=== PATIENT | female | born 1970 | race Native Hawaiian/Other Pacific Islander ===

== ENCOUNTER 2017-07-11 06:20 | Inpatient (IN) | payer BC ==
[2017-07-04 09:03] VITALS: BMI 26.5
[2017-07-11] MEDS ORDERED: Bacitracin Ointment 30 GM TUBE ONE (07:36)
[2017-07-11] MEDS ORDERED: cefOXitin IV 2 gm in Dextrose 2 GM/50 ML BAG IVPB ONE (07:36)
[2017-07-11] MEDS ORDERED: Midazolam 2 MG/2 ML VIAL ONE (08:02)
[2017-07-11] MEDS ORDERED: Propofol 10 mg/ml Inj (20 ML) ONE (08:02)
[2017-07-11] MEDS ORDERED: Lactated Ringer's 1,000 ML IV ONE ×3 (08:23→12:35)
[2017-07-11] MEDS ORDERED: ePHEDrine 50 mg/ml Inj ONE (08:43)
[2017-07-11] MEDS ORDERED: Neostigmine Methylsulfate 3mg/3ml Syringe IV ONE (10:39)
[2017-07-11] MEDS: HYDROmorphone 0.5 mg/0.5 ml ISec IVP PRN ×5 (11:45→20:59)
[2017-07-11] MEDS ORDERED: HYDROmorphone 0.5 mg/0.5 ml ISec ONE (11:47)
[2017-07-11] MEDS ORDERED: HYDROmorphone 1 mg/ml ISec IVP PRN (11:56)
--- NOTE | 2017-07-11 15:29 | OP ---
PROCEDURE DATE: 07/11/2017 PREOPERATIVE DIAGNOSES: Serous cystadenoma of the right ovary and menometrorrhagia, endometriosis, and pelvic pains. POSTOPERATIVE DIAGNOSES: Serous cystadenoma of the right ovary and menometrorrhagia, and pelvic pains. OPERATIVE PROCEDURE: Total abdominal hysterectomy and bilateral salpingo-oophorectomy. SURGEON: Ankita Hernandez MD ENGINEERING EQUIPMENT OPERATOR: Jeromy Fernandez MD TYPE OF ANESTHESIA: General. ANESTHESIA ADMINISTERED BY: Dr. Mart. OPERATIVE FINDINGS: As follows, the uterus was slightly large and anterior located. Cervix is firm and closed. Both ovaries are showing signs of adhesion over the right ovary with adhesion to the posterior wall of the abdomen and measured slightly large and left ovary appeared grossly normal. Normal in size. Both fallopian tube appeared grossly normal. There was noted adhesion of the right ovary over the posterior pelvic wall. OPERATIVE TECHNIQUE: The patient was prepped and draped in the usual sterile manner under general anesthesia. The patient in supine position and was aseptically prepped and draped under general anesthesia. A Pfannenstiel skin incision was made. Incision was carried down to the subcutaneous layer. Fascia was cut in the usual manner and was performed and the peritoneum was picked up and opened, thereby exposing the abdominal contents. Pelvic organs were explored and the uterus was pulled up with the forceps for traction purposes. The right round ligament was identified and a Kendal clamp was clamped, cut and sutured over the right side and the same was performed over the left side. The right infundibulopelvic ligament was identified and was clamped, cut and suture ligated with 0 Vicryl sutures and was doubly cut, clamped on the same side and the same was performed over the left side, thereby removing both fallopian tubes and ovaries. The right ovarian artery was identified and was clamped, cut and suture ligated with 0 Vicryl sutures and was doubly cut and sutured with 0 Vicryl sutures. The same was performed over the left side. The right paracervical ligament was clamped, cut with a Jeff clamp and was sutured with 0 Vicryl sutures, the same was performed over the left side and the bladder was pushed down from the lower uterine segment of the uterus, thereby localizing the cervical portion of the uterus. The anterior vaginal wall was picked up and clamped with a Jeff forceps, thereby opening the anterior vaginal wall and thereby removing the cervix and the uterus together in one piece together with both fallopian tube and ovaries. The vaginal cuff was sutured with 0 Vicryl suture using Parks technique of suturing putting one on each angle of the vaginal wall and an interrupted [id number] was applied over the vaginal cuff thereby closing the vagina. A one open sponge soaked with Betadine was put inside the vagina to be removed after the surgery. After establishing hemostasis over the vaginal cuff was closed, the bladder flap was re-sutured by using a 2-0 chromic catgut sutures, thereby closing the pelvic wall. Abdominal cavity was irrigated with Ringer's lactate solution and after establishing hemostasis and after complete lap and sponge counts were announced to be correct, the abdominal cavity was closed in the following manner. Peritoneum was closed by using 0 chromic catgut continuous sutures. Muscles were reapproximated with the use of 0 chromic catgut interrupted sutures and the fascial layer was closed by using an 0 Vicryl using continuous sutures and interrupted sutures applied in different stitches. The subcutaneous layer was closed by using a 2-0 plain catgut suture using continuous sutures and the skin was reapproximated by the use of a 4-0 Monocryl sutures using subcuticular stitches. The patient was transferred to recovery room in stable condition. Estimated blood loss around 600 mL. Specimens consisted of the cervix, uterus, both fallopian tubes and ovaries were sent to the laboratory for histopathological examination and the Ospina catheter was applied, continuously draining clear urine of approximately 230 mL of urine and the thromboelastic compression stockings were in place in the operating room as well as in the recovery room. The patient was in stable condition, transferred to recovery room. Ankita Hernandez MD
[2017-07-11] MEDS ORDERED: cefOXitin IV 2 gm in Dextrose 2 GM/50 ML BAG IVPB SCH (16:00)
[2017-07-11] MEDS: cefOXitin 2 GM in Sodium Chloride 0.9% 100 ML IVPB SCH (16:00)
[2017-07-11] MEDS: Lactated Ringer's 1,000 ML IV SCH ×2 (21:05→21:06)
[2017-07-12] MEDS: cefOXitin 2 GM in Sodium Chloride 0.9% 100 ML IVPB SCH ×2 (00:06→09:42)
[2017-07-12 00:53] VITALS: RESP 20
[2017-07-12] MEDS: HYDROmorphone 0.5 mg/0.5 ml ISec IVP PRN ×5 (01:53→21:15)
[2017-07-12] MEDS: Lactated Ringer's 1,000 ML IV SCH ×2 (03:45→05:41)
[2017-07-12 06:29] LABS: HEMATOCRIT 34.8 % (34.0-47.0); MEAN CELL VOLUME 90.4 fL (81.0-99.0); MEAN CORPUSCULAR HEMOGLOBIN 30.3 pg (27.0-31.0); MEAN CORPUSCULAR HGB CONC 33.6 g/dL (33.0-37.0); MEAN PLATELET VOLUME 7.2 fL (7.2-11.7); RED CELL DISTRIBUTION WIDTH 13.1 % (11.5-14.5); WHITE BLOOD COUNT 12.1 K/uL (4.8-10.8)
[2017-07-12] MEDS: Simethicone 80 mg Chewtab PO PRN ×4 (09:42→21:18)
[2017-07-12] MEDS ORDERED: Pneumococcal 23-Valent Vaccine IM ONE (10:00)
[2017-07-12] MEDS: Oxycodone/Acetaminophen 5/325 mg Tab PO PRN (12:32)
--- NOTE | 2017-07-12 16:35 | CP.PCM.PN ---
Subjective - Date & Time of Evaluation Date of Evaluation: 07/12/17 Time of Evaluation: 16:47 - Subjective Subjective: p0st 0p day #1 AMBULATORY, COMPLAINING OF GAS PAINS, NOT PASSING GAS PER RECTUM, BUT SHE IS BELCHING.. MYLICON 80 MG QID WAS ORDERED AND DULCOLAX SUPPOSITORY PER RECTUM TONIGHT.BOWEL SOUNDS PRESENT BUT SLUGGISH. BP 90/60 MA 80 BEATS /MIN. ABDOMEN IS SOFT DRESSINGS REMOVED AND OPEN TO ROOM AIR. STERILE STRIPS IN PLACE, WOUND WELL COAPTATED. ADVISED TO AMBULATE.. ON PERCOCET FOR PAINSPRN Q4 HRS AND KEFLEX 5 OOMG Q 6 HRS PO. ON REGULAR DIET. VOIDED FREELY. All medical record entries made by the Scribe were at my direction and personally dictated by me. I have reviewed the chart and agree that the record accurately reflects my personal performance of the history, physical exam, medical decision making, and the department course for this patient. I have also personally directed, reviewed, and agree with the discharge instructions and disposition. Objective - Vital Signs/Intake and Output Vital Signs (last 24 hours): Temp Pulse Resp BP Pulse Ox 98.2 F 84 20 115/75 100 07/12/17 16:21 07/12/17 16:21 07/12/17 16:21 07/12/17 16:21 07/12/17 16:21 Intake and Output: 07/12/17 07/12/17 06:59 18:59 Intake Total 1200 Output Total 700 400 Balance -700 800 - Medications Medications: Current Medications Bisacodyl (Dulcolax) 10 mg MA ONCE ONE Stop: 07/12/17 22:01 Cephalexin Monohydrate (Keflex) 500 mg PO Q6 [facility] Last Admin: 07/12/17 12:26 Dose: 500 mg Hydromorphone HCl (Dilaudid) 1 mg IVP Q4H PRN PRN Reason: Pain, severe (8-10) Last Admin: 07/12/17 16:24 Dose: 1 mg Cefoxitin Sodium 2 gm/ (Dextrose) 100 mls @ 50 mls/hr IVPB Q8H [facility] Oxycodone/Acetaminophen (Percocet 5/325 Mg Tab) 1 tab PO Q4 PRN PRN Reason: Pain, moderate (4-7) Stop: 07/15/17 08:01 Last Admin: 07/12/17 12:32 Dose: 1 tab Simethicone (Mylicon Chew Tab) 80 mg PO QID PRN PRN Reason: GI distress Last Admin: 07/12/17 16:15 Dose: 80 mg - Labs Labs: 07/12/17 06:21
[2017-07-13] MEDS: cefOXitin 2 GM in Dextrose 5% In Water 100 ML IVPB SCH ×2 (00:07→09:08)
[2017-07-13] MEDS: HYDROmorphone 0.5 mg/0.5 ml ISec IVP PRN ×3 (01:24→10:14)
[2017-07-13] MEDS: Simethicone 80 mg Chewtab PO PRN (09:14)
--- NOTE | 2017-07-13 15:00 | CP.PCM.PN ---
Subjective - Date & Time of Evaluation Date of Evaluation: 07/13/17 Time of Evaluation: 14:00 - Subjective Subjective: POST OP DAY #2 PASSED GAS PER RECTUM AFTER DULCOLAX SUPPOSITORY WAS GIVEN. PATIENT IS DISCHARGED HOME TODAY. TO THE OFFICE IN 2 WEEKS FOR CHECKUP. PRESCRIPTIONS GIVEN FOR PAINS , TYLENOL #3 I TAB Q4 HRS PRN FOR PAINS, KEFLEX 500 MG 1 CAPSSULE QID FOR 7 DAYS, MYLICON 80 MG 1 TAB QID CHEWABLE TABLETS FOR GAS. DULCOLAX 2TABS DAILY FOR STOOL SOFTENER . N Objective - Vital Signs/Intake and Output Vital Signs (last 24 hours): Temp Pulse Resp BP Pulse Ox 98.4 F 89 20 108/70 95 07/12/17 23:45 07/12/17 23:45 07/12/17 23:45 07/12/17 23:45 07/12/17 23:45 Intake and Output: 07/13/17 07/13/17 06:59 18:59 Intake Total 300 Balance 300 - Medications Medications: Current Medications Cephalexin Monohydrate (Keflex) 500 mg PO Q6 [facility] Last Admin: 07/13/17 13:36 Dose: 500 mg Cefoxitin Sodium 2 gm/ (Dextrose) 100 mls @ 50 mls/hr IVPB Q8H [facility] Last Admin: 07/13/17 09:08 Dose: 50 mls/hr Oxycodone/Acetaminophen (Percocet 5/325 Mg Tab) 1 tab PO Q4 PRN PRN Reason: Pain, moderate (4-7) Stop: 07/15/17 08:01 Last Admin: 07/12/17 12:32 Dose: 1 tab Simethicone (Mylicon Chew Tab) 80 mg PO QID PRN PRN Reason: GI distress Last Admin: 07/13/17 09:14 Dose: 80 mg - Labs Labs: 07/12/17 06:21
[2017-07-13] MEDS: Oxycodone/Acetaminophen 5/325 mg Tab PO PRN (15:02)
--- NOTE | 2017-07-13 15:11 | PCM.IRPREO ---
Pre Procedure Note - Pre Procedure Were any radiologic studies performed in the last 12 months: Not Applicable Was medical management performed in the past 24 months: Not Applicable Clinical indication for the procedure: serous cyst adenoma of the rt ovary Have risks and benefits been explained to the patient: Yes Risks and benefits been explained to the patient: infection. bleeding, injureies to nerrby organs like the bladder, bowels and ureters. Have alternatives to surgery explained to the patient as applicable: Yes - Allergies Allergies: Allergies No Known Allergies Allergy (Verified 07/04/17 09:02)
[2017-07-13 16:51] VITALS: BP 116/80; PULSE 76; TEMP 98.8; O2SAT 97
== END 2017-07-13 17:00 | disposition home or self-care (01) | DRG 743 ==
LOC: C.9S 06:20 → C.6T 17:12
PROVIDERS: ADMIT Obstetrics & Gynecology; ATTEND Obstetrics & Gynecology
PROC: 0UT70ZZ Resection of Bilateral Fallopian Tubes, Open Approach (ICD-10-PCS; 2017-07-11)
PROC: 0UT90ZZ Resection of Uterus, Open Approach (ICD-10-PCS; 2017-07-11)
PROC: 0UT20ZZ Resection of Bilateral Ovaries, Open Approach (ICD-10-PCS; principal; 2017-07-11 08:00)
DX: N80.1 Endometriosis of ovary (principal); D27.0 Benign neoplasm of right ovary; N92.1 Excessive and frequent menstruation with irregular cycle; N72 Inflammatory disease of cervix uteri

== ENCOUNTER 2018-11-14 07:36 | Outpatient (CLI) | payer BC | END 2018-11-14 07:37 | disposition home or self-care (01) | LOC: C.MAMMO 07:36 | DX: Z12.31 Encounter for screening mammogram for malignant neoplasm of breast (principal) ==

== ENCOUNTER 2018-12-10 09:20 | Outpatient (CLI) | payer BC | END 2018-12-10 09:21 | disposition home or self-care (01) | LOC: C.MAMMO 09:20 ==